=== PATIENT | female | born 1975 | race Caucasian/White ===

== ENCOUNTER 2018-02-03 08:03 | Day surgery (SDC) | payer MEDICAID, OTHER ==
[~2018-02-03] VITALS: Ht 154.9 cm; Wt 65.8 kg
[2018-02-03] MEDS ORDERED: MIDAZOLAM 2 MG/2 ML VIAL ONE (09:46)
[2018-02-03] MEDS ORDERED: fentaNYL 0.05 MG/ML VIAL ONE (09:46)
== END 2018-02-03 10:49 | disposition home or self-care (01) ==
LOC: MMU 08:03 → MOR 08:03
PROVIDERS: ATTEND Internal Medicine Gastroenterology
DX: K20.8 Other esophagitis (principal); K31.89 Other diseases of stomach and duodenum
CPT/HCPCS: 36415; 43239; 86677; J2250; J7030; J3010